=== PATIENT | female | born 1940 | race African-American/Black ===

== ENCOUNTER 2017-04-02 09:00 | Outpatient (CLI) | payer OTHER ==
[2017-04-02] MEDS ORDERED: LIDOCAINE 1%, 20 ML MDV 20 ML ONE (11:12)
[2017-04-03 08:10] VITALS: BP_SYST 139
== END 2017-04-02 19:33 | disposition home or self-care (01) ==
LOC: SCT 09:00 → SDS 09:06 → SCT 09:06 → EDSTATUS 04-03 07:51
PROVIDERS: ATTEND Internal Medicine Pulmonary Disease
DX: J93.83 Other pneumothorax (principal); I10 Essential (primary) hypertension; E11.9 Type 2 diabetes mellitus without complications; M19.90 Unspecified osteoarthritis, unspecified site
CPT/HCPCS: 32405; 71010; 88305; G0378; J2001